=== PATIENT | male | born 1935 | race Caucasian/White ===

== ENCOUNTER 2017-11-23 23:45 | Observation (INO) | payer MEDICARE, BC ==
[~2017-11-23] VITALS: Ht 180.3 cm; Wt 89.2 kg
[~2017-11-23 23:45] MED LIST: AMARYL; ASPI81CH PO; ASPI81EC; ATOR20 PO; BENAML10/40 PO; BENAML20/5; BETA.25.45 OD; BETOPTIC; FLUSAL1005; FLUSAL1005 IH; GLIM4 PO; GLUCOPHAGE XR PO; HYDACE5 PO; INDAPAMIDE; INDAPAMIDE PO; LIPITOR; METO100ER; METO100ER PO; OXYACE5T PO; TAMS.4ER; TAMS.4ER PO; VITAMIN
[2017-11-23] MEDS ORDERED: TRIBENZOR 40-51 EAC1 PO (23:53)
[2017-11-23] MEDS ORDERED: ATOR10 PO (23:53)
[2017-11-24 00:14] LABS: BASOPHILS ABSOLUTE AUTO 0.07 K/mm3 (0.00-0.23); BASOPHILS PERCENT AUTO 1 % (0-2); EOSINOPHILS ABSOLUTE AUTO 0.33 K/mm3 (0.00-0.68); EOSINOPHILS PERCENT AUTO 3 % (0-6); Hematocrit 46.8 % (37.0-53.0); Hemoglobin 15.6 g/dL (13.5-17.5); IMMATURE GRAN ABSOLUTE AUTO 0.04 K/mm3 (0.00-0.10); IMMATURE GRAN PERCENT AUTO 0 % (0-1); LYMPHOCYTES ABSOLUTE AUTO 1.79 K/mm3 (0.84-5.20); LYMPHOCYTES PERCENT AUTO 16 % (21-46); MONOCYTES ABSOLUTE AUTO 0.75 K/mm3 (0.16-1.47); MONOCYTES PERCENT AUTO 7 % (4-13); Mean Corpuscular HGB 32.2 pg (26.0-34.0); Mean Corpuscular HGB Conc 33.3 g/dL (31.5-36.5); Mean Corpuscular Volume 97 fL (80-100); Mean Platelet Volume 9.8 fL (9.1-12.4); NEUTROPHILS ABSOLUTE AUTO 8.43 K/mm3 (1.96-9.15); NEUTROPHILS PERCENT AUTO 74 % (41-73); Platelet Count 207 K/mm3 (150-400); RDW Coefficient Variation 12.9 % (11.7-14.2); RDW Standard Deviation 45.9 fL (35.1-46.3); Red Blood Cell Count 4.84 M/mm3 (4.30-5.90); White Blood Cell Count 11.41 K/mm3 (4.00-11.30)
[2017-11-24 00:32] LABS: Alanine Aminotransfer (ALT/SGP 32 U/L (12-78); Albumin, Blood 3.7 g/dL (3.4-5.0); Albumin/Globulin Ratio 0.9 (0.8-1.8); Alk Phos 60 U/L (50-136); Anion Gap 10 mmol/L (6-16); Aspartate Aminotrans (AST/SGOT 24 U/L (12-37); Bilirubin, Total 0.3 mg/dL (0.1-1.0); Blood Urea Nitrogen 18 mg/dL (8-24); Bun/Creatinine Ratio 16.7 (12.0-20.0); CO2, Blood 23 mmol/L (21-32); Calcium, Blood 9.1 mg/dL (8.5-10.1); Chloride, Blood 107 mmol/L (98-108); Creatinine, Blood 1.08 mg/dL (0.60-1.20); Glomerular Filtration Rate >60 (60-); Glucose, Blood 72 mg/dL (70-99); Potassium, Blood 3.7 mmol/L (3.5-5.5); Sodium, Blood 140 mmol/L (136-145); Total Protein, Blood 7.7 g/dL (6.4-8.2); Troponin I <0.015 ng/mL (0.000-0.040)
[2017-11-24 02:57] LABS: Troponin I 0.029 ng/mL (0.000-0.040)
[2017-11-24] MEDS ORDERED: METF500 PO (10:55)
[2017-11-24 10:57] LABS: BASOPHILS ABSOLUTE AUTO 0.05 K/mm3 (0.00-0.23); BASOPHILS PERCENT AUTO 1 % (0-2); EOSINOPHILS ABSOLUTE AUTO 0.15 K/mm3 (0.00-0.68); EOSINOPHILS PERCENT AUTO 2 % (0-6); Hematocrit 42.3 % (37.0-53.0); Hemoglobin 14.3 g/dL (13.5-17.5); IMMATURE GRAN ABSOLUTE AUTO 0.02 K/mm3 (0.00-0.10); IMMATURE GRAN PERCENT AUTO 0 % (0-1); LYMPHOCYTES ABSOLUTE AUTO 1.29 K/mm3 (0.84-5.20); LYMPHOCYTES PERCENT AUTO 19 % (21-46); MONOCYTES ABSOLUTE AUTO 0.61 K/mm3 (0.16-1.47); MONOCYTES PERCENT AUTO 9 % (4-13); Mean Corpuscular HGB 32.8 pg (26.0-34.0); Mean Corpuscular HGB Conc 33.8 g/dL (31.5-36.5); Mean Corpuscular Volume 97 fL (80-100); NEUTROPHILS ABSOLUTE AUTO 4.71 K/mm3 (1.96-9.15); NEUTROPHILS PERCENT AUTO 69 % (41-73); Platelet Count 194 K/mm3 (150-400); RDW Coefficient Variation 13.1 % (11.7-14.2); RDW Standard Deviation 46.3 fL (35.1-46.3); Red Blood Cell Count 4.36 M/mm3 (4.30-5.90); White Blood Cell Count 6.83 K/mm3 (4.00-11.30)
[2017-11-24 11:04] LABS: Alanine Aminotransfer (ALT/SGP 27 U/L (12-78); Albumin, Blood 3.3 g/dL (3.4-5.0); Albumin/Globulin Ratio 0.9 (0.8-1.8); Alk Phos 54 U/L (50-136); Anion Gap 9 mmol/L (6-16); Aspartate Aminotrans (AST/SGOT 17 U/L (12-37); Bilirubin, Total 0.4 mg/dL (0.1-1.0); Blood Urea Nitrogen 17 mg/dL (8-24); Bun/Creatinine Ratio 17.5 (12.0-20.0); CO2, Blood 24 mmol/L (21-32); Calcium, Blood 8.6 mg/dL (8.5-10.1); Chloride, Blood 105 mmol/L (98-108); Creatinine, Blood 0.97 mg/dL (0.60-1.20); Globulin, Blood 3.6 g/dL (2.2-4.0); Glomerular Filtration Rate >60 (60-); Glucose, Blood 189 mg/dL (70-99); Potassium, Blood 4.2 mmol/L (3.5-5.5); Sodium, Blood 138 mmol/L (136-145); Total Protein, Blood 6.9 g/dL (6.4-8.2)
[2017-11-24 11:13] LABS: Troponin I 0.03 ng/mL (0.000-0.040)
== END 2017-11-24 14:42 | disposition home or self-care (01) ==
LOC: ER 23:45 → ERHOLD 23:46 → MEDS 23:46 → ER 23:46 → EOR 23:46 → EDBEDREQ 11-24 03:08 → MEDS 11-24 06:10 → EOR 11-24 06:10 → MEDS 11-24 08:08
PROVIDERS: Emergency Medicine; Internal Medicine
DX: R29.898 Other symptoms and signs involving the musculoskeletal system (principal); I25.10 Atherosclerotic heart disease of native coronary artery without angina pectoris; I25.2 Old myocardial infarction; I10 Essential (primary) hypertension; E11.9 Type 2 diabetes mellitus without complications; J45.909 Unspecified asthma, uncomplicated; N40.0 Benign prostatic hyperplasia without lower urinary tract symptoms; R61 Generalized hyperhidrosis; E78.5 Hyperlipidemia, unspecified; Z79.82 Long term (current) use of aspirin; Z79.84 Long term (current) use of oral hypoglycemic drugs; Z79.899 Other long term (current) drug therapy; Z91.048 Other nonmedicinal substance allergy status; Z91.09 Other allergy status, other than to drugs and biological substances
CPT/HCPCS: 36415; 71046; 80053; 82550; 83880; 84484; 85025; 93005; 93010; 93306; 96361; 96372; 96374; 96375; 99285; G0378; J0360; J1650; J2405; J7030

== ENCOUNTER 2020-05-23 06:21 | Day surgery (SDC) | payer MEDICARE, BC ==
[~2020-05-23] VITALS: Ht 177.8 cm; Wt 85.6 kg
[~2020-05-23 06:21] MED LIST changes: +AMLO10 PO; +ATOR10 PO; +Aspir 8181 MG PO; +Betoptic S10 ML; +Betoptic S10 ML BOTHEYES; +FLUT1DIS2 INH; +Flomax0.4 MG PO; +HYDCHL25 PO; +LOSA50 PO; +METF500 PO; +METO25ER PO; +Metformin HCl500 MG PO; +TRIBENZOR 40-11 EAC1 PO; +TRIBENZOR 40-51 EAC1 PO; +VIT1CAPS12; +VIT1CAPS12 PO; +VITAMIN D32000 UNIT PO; +Vitamin B Comple1 EA PO; +WIXELA 100-501 EAC1
--- NOTE | 2020-05-23 07:25 | NUR ---
05/23/20 0796 Roberta Barrios PT STATES HE IS ALLERGIC TO CONTRAST IODINE AND TOPICAL BETADINE IS OK. BETADINE APPLIED TO RIGHT FOREARM FOR SPOT TEST. PT DENIES DISCOMFORT AND NO REACTION NOTED
== END 2020-05-23 08:45 | disposition home or self-care (01) ==
LOC: ORSCSDS 06:21
PROVIDERS: Ophthalmology
PROC: 08RJ3JZ Replacement of Right Lens with Synthetic Substitute, Percutaneous Approach (ICD-10-PCS; principal; 2020-05-23 07:30)
DX: H25.11 Age-related nuclear cataract, right eye (principal); H21.81 Floppy iris syndrome; I10 Essential (primary) hypertension; I25.10 Atherosclerotic heart disease of native coronary artery without angina pectoris; Z87.891 Personal history of nicotine dependence; E11.9 Type 2 diabetes mellitus without complications; K21.9 Gastro-esophageal reflux disease without esophagitis; Z79.84 Long term (current) use of oral hypoglycemic drugs; Z79.899 Other long term (current) drug therapy
CPT/HCPCS: 82947; J2001; J2250; J3010; J3301; J7040; J7120; V2632

== ENCOUNTER → 2021-12-03 | Outpatient (CLI) | payer MEDICARE, BC ==
[2021-12-03 16:14] LABS: Microalb/Creat Ratio UR, Rand 86.667 mg/g (0.000-30.000)
== END | disposition home or self-care (01) ==
LOC: LAB SHORT 08:30
PROVIDERS: Family Medicine
DX: E11.9 Type 2 diabetes mellitus without complications (principal)
CPT/HCPCS: 82043; 82570

== ENCOUNTER 2022-03-07 15:17 | Emergency (ER) | payer MEDICARE, BC ==
[~2022-03-07] VITALS: Ht 177.8 cm; Wt 81.7 kg
[2022-03-07 16:06] LABS: BASOPHILS ABSOLUTE AUTO 0.01 K/mm3 (0.00-0.23); BASOPHILS PERCENT AUTO 0 % (0-2); EOSINOPHILS PERCENT AUTO 0 % (0-6); Hematocrit 38.9 % (37.0-53.0); Hemoglobin 13.7 g/dL (13.5-17.5); IMMATURE GRAN ABSOLUTE AUTO 0.06 K/mm3 (0.00-0.10); IMMATURE GRAN PERCENT AUTO 1 % (0-1); LYMPHOCYTES ABSOLUTE AUTO 0.41 K/mm3 (0.84-5.20); LYMPHOCYTES PERCENT AUTO 4 % (21-46); MONOCYTES ABSOLUTE AUTO 0.86 K/mm3 (0.16-1.47); MONOCYTES PERCENT AUTO 8 % (4-13); Mean Corpuscular HGB 31.4 pg (26.0-34.0); Mean Corpuscular HGB Conc 35.2 g/dL (31.5-36.5); Mean Corpuscular Volume 89 fL (80-100); Mean Platelet Volume 10.4 fL (9.1-12.4); NEUTROPHILS ABSOLUTE AUTO 9.63 K/mm3 (1.96-9.15); NEUTROPHILS PERCENT AUTO 88 % (41-73); Platelet Count 198 K/mm3 (150-400); RDW Standard Deviation 39.2 fL (35.1-46.3); Red Blood Cell Count 4.37 M/mm3 (4.30-5.90); White Blood Cell Count 10.97 K/mm3 (4.00-11.30)
[2022-03-07 16:37] LABS: Albumin, Blood 2.5 g/dL (3.4-5.0); Albumin/Globulin Ratio 0.6 (0.8-1.8); Bilirubin, Total 0.8 mg/dL (0.1-1.0); Bun/Creatinine Ratio 21.1 (12.0-20.0); Calcium, Blood 8.1 mg/dL (8.5-10.1); Creatinine, Blood 1.09 mg/dL (0.60-1.20); Globulin, Blood 4.4 g/dL (2.2-4.0); Potassium, Blood 4.4 mmol/L (3.5-5.5); Total Protein, Blood 6.9 g/dL (6.4-8.2)
[2022-03-07] MEDS ORDERED: ONDA4ODT MM (18:34)
== END 2022-03-07 18:55 | disposition home or self-care (01) ==
LOC: ER 15:17
PROVIDERS: Emergency Medicine
DX: E11.649 Type 2 diabetes mellitus with hypoglycemia without coma (principal); J44.9 Chronic obstructive pulmonary disease, unspecified; I25.10 Atherosclerotic heart disease of native coronary artery without angina pectoris; I10 Essential (primary) hypertension; N40.0 Benign prostatic hyperplasia without lower urinary tract symptoms; Z91.09 Other allergy status, other than to drugs and biological substances; Z79.82 Long term (current) use of aspirin; Z79.899 Other long term (current) drug therapy; Z79.84 Long term (current) use of oral hypoglycemic drugs
CPT/HCPCS: 71045; 80053; 82947; 85025; 93005; 93010; 94640; 94664; 96361; 96374; 99285-25; J2405; J7030

== ENCOUNTER 2022-03-16 11:34 | Observation (INO) | payer MEDICARE, BC ==
[~2022-03-16] VITALS: Ht 180.3 cm; Wt 81.7 kg
[~2022-03-16 11:34] MED LIST changes: +ONDA4ODT MM
[2022-03-16 12:04] LABS: Base Excess Venous 1.2 mmol/L; Bicarbonate Venous 25.5 mmol/L (24.0-30.0); PCO2 Venous 39.1 mmHg (38-42); pH Blood Venous 7.43 (7.34-7.37)
[2022-03-16 12:15] LABS: BASOPHILS ABSOLUTE AUTO 0.02 K/mm3 (0.00-0.23); BASOPHILS PERCENT AUTO 0 % (0-2); EOSINOPHILS PERCENT AUTO 0 % (0-6); Hematocrit 37.7 % (37.0-53.0); IMMATURE GRAN ABSOLUTE AUTO 0.05 K/mm3 (0.00-0.10); IMMATURE GRAN PERCENT AUTO 1 % (0-1); LYMPHOCYTES ABSOLUTE AUTO 0.22 K/mm3 (0.84-5.20); LYMPHOCYTES PERCENT AUTO 2 % (21-46); MONOCYTES ABSOLUTE AUTO 0.14 K/mm3 (0.16-1.47); MONOCYTES PERCENT AUTO 1 % (4-13); Mean Corpuscular HGB 31.6 pg (26.0-34.0); Mean Corpuscular HGB Conc 34.5 g/dL (31.5-36.5); Mean Corpuscular Volume 92 fL (80-100); Mean Platelet Volume 10.4 fL (9.1-12.4); NEUTROPHILS ABSOLUTE AUTO 10.01 K/mm3 (1.96-9.15); NEUTROPHILS PERCENT AUTO 96 % (41-73); Platelet Count 219 K/mm3 (150-400); RDW Coefficient Variation 12.6 % (11.7-14.2); Red Blood Cell Count 4.12 M/mm3 (4.30-5.90); White Blood Cell Count 10.44 K/mm3 (4.00-11.30)
[2022-03-16 12:28] LABS: Albumin, Blood 1.5 g/dL (3.4-5.0); Albumin/Globulin Ratio 0.4 (0.8-1.8); Bilirubin, Total 1.1 mg/dL (0.1-1.0); Bun/Creatinine Ratio 22.6 (12.0-20.0); Calcium, Blood 7.8 mg/dL (8.5-10.1); Creatinine, Blood 2.12 mg/dL (0.60-1.20); Globulin, Blood 4.2 g/dL (2.2-4.0); Magnesium, Blood 1.9 mg/dL (1.6-2.4); Total Protein, Blood 5.7 g/dL (6.4-8.2)
[2022-03-16 12:53] LABS: Influenza A, PCR NEGATIVE (NEGATIVE); Influenza B, PCR NEGATIVE (NEGATIVE); Resp Syncytial Virus, PCR NEGATIVE (NEGATIVE)
[2022-03-16 13:01] LABS: SARS-Cov-2 (COVID-19) PCR, MMC POSITIVE (NEGATIVE)
--- NOTE | 2022-03-16 13:25 | NUR ---
ED and Inpatient Palliative Care Consult. Spoke with Dr Mohan and discussed case. Pt appropriate for comfort care. Pt resting on gurney wearing BIPAP. Pt's spouse Sofya and Pt's daughter Rachel at bedside. Engaged in therapeutic conversation regarding comfort care. Educated on comfort care philosophy and offered active listening. Family reports Pt is one that wants to focus on quality of life vs longevity of life. Continued supportive visit and answered questions. Family expresses appreciation and report no concerns at this time. Spoke with ED RN Kevan and discussed case. Plan to offer Pt comfort medication and titrate BIPAP down to NC. Spoke with Dr Mulligan and discussed case. Placed comfort care order and comfort care order set per V/O from Dr Mohan. Palliative Care will remain available for symptom management and supportive visits.
--- NOTE | 2022-03-16 16:47 | NUR ---
Comfort Care Visit Pt resting on gurney with his eyes closed. Family at bedside. Offered supportive listening and answered questions. ED RN Kevan has titrated BIPAP down and is in to D/C BIPAP and places non rebreather mask. Pt's respirations appears even and unlabored. Mild grimacing noted by Kevan. Kevan will offer morphine for comfort. Family expresses appreciation. Palliative Care will remain available.
--- NOTE | 2022-03-16 18:23 | NUR ---
SHIFT SUMMARY. PATIENT IS ON COMFORT CARE. PATIENT CAN RESPOND IN A FEW WORDS. PATIENTS FAMILY IS AT BEDSIDE. COMFORT MEASURES ARE IN PLACE. PATIENT IS ON 15L NC. PATIENT IS RESTING COMFORTABLY. NO ACUTE ISSUES.
--- NOTE | 2022-03-16 19:27 | NUR ---
COMFORT : PATIENT SCORES A 4 ON FLACC SCALE. 20 MG OF ROXANOL IS GIVEN. EMOTIONAL SUPPORT IS ALSO GIVEN TO PATIENT AND FAMILY.
--- NOTE | 2022-03-16 23:41 | NUR ---
COMFORT: FAMILY IS AT BEDSIDE AND WILL STAY THE NIGHT. PATIENT HAD GOOD EFFECT FROM ROXANOL AND IS RESTING COMFORTABLY. CONDOM CATH IS PLACED. RED RASH OBSERVED ON LEFT HIP AND UPPER THIGH.
--- NOTE | 2022-03-17 04:08 | NUR ---
COMFORT: PATIENT SCORE A 4 ON FLACC SCALE WITH T&P AND ANSWERED YES WHEN ASKED IF HE NEEDED PAIN MEDICATION. 20 MG OF ROXANOL IS GIVEN. AND DAUGHTER REMAIN AT BEDSIDE.
--- NOTE | 2022-03-17 09:22 | NUR ---
Comfort Care Visit Pt resting in bed with his eyes closed. Pt appears comfortable with no S/S of distress at this time. Family at bedside. Offered supportive visit and answered questions. Titrated Pt's O2 down to 5 L O2 via NC with family's permission. Pt remains comfortable. Engaged in therapeutic discussion regarding the potential of needing to consider hospice if Pt remains stable. Gentle education on hospice philosophy with V/U made by family. Family express appreciation and report no other concerns at this time. Spoke with Primary RN Javad and discussed case. Per family request Javad will continued to titrate O2 down as comfort will allow. Palliative Care will remain available.
--- NOTE | 2022-03-17 10:52 | NUR ---
NURSE NOTE PATIENT HAS BEEN TITRATED DOWN TO ROOM AIR. SCOPOLAMINE PATCH PLACED. ASSESSED PATIENT FOR COMFORT. PATIENT AND FAMILY DO NOT NEED ANY ADDITIONAL NEEDS CURRENTLY.
--- NOTE | 2022-03-17 16:15 | NUR ---
COMFORT CARE SUMMARY PATIENT STARTED SHIFT AT 15L NC. TITRATED DOWN TO ROOM AIR. MEDICATED PRIOR TO TITRATION. PATIENT TOLERATED WELL. PATIENT HAS BEEN RESTING ALL SHIFT. PATIENT HAS BEEN TURNED FREQUENTLY. PATIENTS FAMILY HAS BEEN ROTATING IN AND OUT ALL SHIFT. NO ACUTE EVENTS THIS SHIFT. WILL MONITOR UNTIL SHIFT CHANGE.
--- NOTE | 2022-03-18 06:44 | NUR ---
PT ORIGINALLY ADMITTED WITH EXCESSIVE SOB; FOUND TO BE COVID +. CONTINUED RESPIRATORY DECLINE THROUGHOUT HOSPITALIZATION. PT TRANSITIONED TO COMFORT CARE. MEDICATED MULTIPLE TIMES THROUGHOUT THE SHIFT AFTER DISCUSSING PLAN OF CARE WITH FAMILY, WHO REMAINED AT BEDSIDE UNTIL 0600. BREATHING NOW REQUIRING ACCESSORY MUSCLE USE. PT BEGAN PRESENTING WITH DIAPHORESIS IN EARLY AM; A SPOT TEMPORAL TEMPERATURE READ 101.1 F. MINIMAL URINE OUTPUT (BRIEF CHANGE X1). SECRETIONS CONTINUE DESPITE SCOPOLOMINE PATCH AND ATROPINE GTTS. COMFORT MEASURES REMAIN IN PLACE. WILL UPDATE ONCOMING RN OF OVERNIGHT EVENTS.
--- NOTE | 2022-03-18 09:50 | NUR ---
PATIENT IS SLEEPING. NO FAMILY AT BEDSIDE A THIS TIME
--- NOTE | 2022-03-18 12:07 | NUR ---
PATIENT'S ATTENDS CHANGED AND REPOSITIONED WITH A PILLOW UNDER HIS RIGHT HIP. FAMILY AT THE BEDSIDE.
--- NOTE | 2022-03-18 18:53 | NUR ---
FAMILY IS AT BEDSIDE AND THEY ARE VERY GRATEFUL FOR THE CARE THEY HAVE RECEIVED. PATIENT APPEARS COMFORTABLE AT THIS TIME. MOUTH MOISTENED WITH WATER BY SWAB. ATTENDS IN PLACE.
--- NOTE | 2022-03-18 19:31 | NUR ---
DISCUSSED WITH PT'S POLICY OF Q2 TURN. SHE IS REQUESTING THE PATIENT NOT BE TURNED UNLESS HE APPEARS UNCOMFORTABLE OR NEEDS ATTENDS CHANGED. PT REQUESTING REGULAR PAIN MEDICATION TO KEEP HIM COMFORTABLE.
== END 2022-03-19 03:05 ==
LOC: ER 11:34 → ERHOLD 12:49 → MEDS 12:49 → EDBEDREQ 13:49 → MEDS 17:07
PROVIDERS: Student in an Organized Health Care Education/Training Program; ADMIT Hospitalist
DX: J96.01 Acute respiratory failure with hypoxia (principal); J18.9 Pneumonia, unspecified organism; U07.1 COVID-19; N17.9 Acute kidney failure, unspecified; J44.0 Chronic obstructive pulmonary disease with (acute) lower respiratory infection; J44.1 Chronic obstructive pulmonary disease with (acute) exacerbation; I25.10 Atherosclerotic heart disease of native coronary artery without angina pectoris; I10 Essential (primary) hypertension; E11.9 Type 2 diabetes mellitus without complications; Z87.891 Personal history of nicotine dependence; Z79.82 Long term (current) use of aspirin; Z79.84 Long term (current) use of oral hypoglycemic drugs; Z88.7 Allergy status to serum and vaccine; Z51.5 Encounter for palliative care
CPT/HCPCS: 0241U; 71045; 80053; 82803; 83735; 84484; 85025; 93005; 93010; 94640; 94660; 94664; 94760; 96374; 96376; 99285-25; A9270; G0378; J2060; J2270